=== PATIENT | male | born 1950 | race Caucasian/White ===

== ENCOUNTER 2018-06-29 11:55 | Observation (INO) | payer BC ==
[~2018-06-29] VITALS: Ht 193 cm; Wt 133.6 kg
[2018-06-29 12:37] VITALS: BP 123/87
[2018-06-29] MEDS ORDERED: GABAPENTIN 300 MG CAPSULE PO STA (12:42)
[2018-06-29] MEDS ORDERED: ACETAMINOPHEN 500 MG TABLET PO STA (12:42)
[2018-06-29] MEDS ORDERED: ASPI-650 PO (12:50)
[2018-06-29] MEDS ORDERED: CALC-126 PO (12:50)
[2018-06-29] MEDS ORDERED: PRAV80TA2 PO (12:50)
[2018-06-29] MEDS ORDERED: TAMS-11 PO (12:50)
[2018-06-29] MEDS ORDERED: FINA5TAB4 PO (12:50)
[2018-06-29] MEDS ORDERED: CHOL2000 PO (12:50)
[2018-06-29] MEDS ORDERED: LOSA25TA25 PO (12:50)
[2018-06-29] MEDS ORDERED: LACTATED RINGERS 1,000 ML IV SCH (12:50)
[2018-06-29] MEDS ORDERED: METO25TA91 PO (12:50)
[2018-06-29] MEDS ORDERED: MIDAZOLAM 1 MG/ML, 2ML ONE (14:01)
[2018-06-29] MEDS ORDERED: FENTANYL PF 100 MCG/2ML ONE (14:01)
[2018-06-29] MEDS ORDERED: CIPROFLOXACIN 400MG/200ML PMX ONE (14:35)
[2018-06-29] MEDS ORDERED: FENTANYL PF 250 MCG/5ML ONE (14:54)
[2018-06-29] MEDS ORDERED: DEXAMETHASONE 4 MG/ML, 1ML ONE (16:11)
[2018-06-29] MEDS ORDERED: CEFAZOLIN 1,000 MG ONE (16:11)
[2018-06-29] MEDS ORDERED: PROPOFOL 10 MG/ML, 20ML ONE (16:11)
[2018-06-29] MEDS ORDERED: ONDANSETRON 2MG/ML, 2ML ONE (16:11)
[2018-06-29] MEDS ORDERED: ONDANSETRON 2MG/ML, 2ML IV PRN (16:30)
[2018-06-29] MEDS ORDERED: OXYcodone/APAP 5/325MG TABLET PO PRN (16:30)
[2018-06-29 19:24] VITALS: BP 152/98
[2018-06-29 23:19] VITALS: BP 103/51
[2018-06-30 02:57] VITALS: BP 126/83
[2018-06-30 06:49] VITALS: BP 122/71
== END 2018-06-30 11:56 | disposition home or self-care (01) ==
LOC: OUT 11:55 → 4NOR 17:15 → OUT 23:28 → 4NOR 23:28 → DCLOUNGE 06-30 11:40
PROVIDERS: ADMIT Urology; ATTEND Urology
DX: N40.0 Benign prostatic hyperplasia without lower urinary tract symptoms (principal); I10 Essential (primary) hypertension; E78.00 Pure hypercholesterolemia, unspecified; Z87.891 Personal history of nicotine dependence; Z79.899 Other long term (current) drug therapy
CPT/HCPCS: 52601; 88305; 93005; G0378; J0744; J1100; J2250; J2405; J2704; J3010; J7120; J0690